=== PATIENT | female | born 1960 | race Caucasian/White ===

== ENCOUNTER → 2018-09-14 12:50 | Outpatient (CLI) | payer OTHER, SELFPAY ==
--- NOTE | 2018-09-14 | DI.MRI.S_ITS ---
PROCEDURE: MR SHOULDER LT WO CON INDICATIONS: PAIN IN LEFT SHOULDER TECHNIQUE: Noncontrast oblique coronal T2 fast spin echo with fat saturation, oblique sagittal T1 spin echo and T2 fast spin echo with fat saturation, axial T1 spin echo and T2 fast spin echo with fat saturation through the shoulder. COMPARISON: None. FINDINGS: Image quality: Diagnostic. Rotator cuff: There is an irregular moderate to high-grade partial-thickness tear identified along the anterior distal supraspinatus tendon near the rotator interval with corresponding moderate focal tendinopathy. The possibility of a small perforating of full-thickness tear within this region is difficult to exclude. Subscapularis tendinopathy is also present with bursal surface with moderate grade partial-thickness tearing. There is mild infraspinatus and teres minor tendinopathy without significant tearing. No significant atrophy of the rotator cuff muscles is evident. Bones and bursae: There is no acute fracture, dislocation, or suspicious osseous lesion identified involving the osseous structures of the left shoulder. There are mild degenerative changes of the acromioclavicular joint. A small amount of fluid is contained within the subacromial subdeltoid bursa. No significant glenohumeral joint effusion is identified. Capsule and soft tissues: Evaluation of the labrum and the glenohumeral ligaments is difficult without intra-articular contrast. However, there is increased signal identified along the posterior aspect of the labrum, suggesting a small labral tear. No detached labral fragment or large paravertebral cysts are evident. No acute injuries are suspected involving the glenohumeral ligaments. The long head of the biceps tendon is normally positioned within the bicipital groove and appears to be intact and unremarkable. IMPRESSION: 1. Moderate to high-grade partial-thickness tearing involving the anterior distal supraspinatus tendon. A small perforating full-thickness tear is difficult to exclude. 2. Low to moderate grade partial-thickness tearing and tendinopathy of the subscapularis tendon. 3. Mild infraspinatus and teres minor tendinopathy. 4. Small posterior labral tear. 5. Mild degenerative changes of the acromioclavicular joint. 6. Small amount of fluid within the subacromial subdeltoid bursa. Please correct clinically to exclude bursitis. Dictated by: Shawn Castillo M.D. on 09/14/2018 at 14:01 Approved by: Shawn Castillo M.D. on 09/14/2018 at 14:08
== END ==
PROVIDERS: PCP Physician Assistant Medical; Visit Provider Physician Assistant Medical
DX: M25.512 Pain in left shoulder (principal); M75.112 Incomplete rotator cuff tear or rupture of left shoulder, not specified as traumatic; S43.492A Other sprain of left shoulder joint, initial encounter; M19.012 Primary osteoarthritis, left shoulder
CPT/HCPCS: 73221